=== PATIENT | female | born 1965 | race Caucasian/White ===

== ENCOUNTER 2018-02-17 02:07 | Emergency (ER) | payer SELFPAY ==
[2018-02-17 02:08] VITALS: BP 141/74; PULSE 76; RESP 18; TEMP 36.7; O2SAT 96; BMI 29.2
[2018-02-17 03:06] VITALS: PULSE 70; RESP 18
[2018-02-17] MEDS: Ipratropium/Albuterol Sulfate 3 ML AMPUL.NEB INHALATION (03:06)
--- NOTE | 2018-02-17 03:15 | RAD_ITS ---
STUDY: X-RAY CHEST REASON FOR EXAM: Female, 52 years old. Cough and shortness of breath TECHNIQUE: PA and lateral views of the chest. COMPARISON: 09/23/2014 FINDINGS: The lungs are clear and expanded. There is no demonstrated pleural abnormality. Normal size heart. Normal mediastinum and mehnaz. Normal visualized pulmonary arteries. Normal visualized aortic arch and descending thoracic aorta. Normal visualized thoracic spine. Normal visualized ribs, clavicles, and shoulders. There is no demonstrated abnormality of the visualized soft tissue structures of the upper abdomen. RAD/Chest PA and Lateral IMPRESSION: Normal x-ray examination of the chest. Electronically Signed: Flo Li MD at 3:32 EDT Tel , Service support ,
--- NOTE | 2018-02-17 03:57 | ED.VISSUMM ---
- ER Visit Summary Date of Service: 02/17/18 Chief Complaint: Cough and congestion History of Present Illness: The patient is a 52 F who presents with 1 week of a URI-like illness. She complains of congestion rhinorrhea and productive cough. She reports large amount of sputum. Her daughter is ill with similar symptoms. The patient denies fever shortness of breath nausea vomiting. Physical Examination: Afebrile vitals are normal Moist mucous membranes Heart regular rate and rhythm No respiratory distress faint scattered expiratory wheezing Abdomen soft Extremities nontender Test Results: Chest x-ray is normal Emergency Department Course and Treatment: Patient was given a DuoNeb aerosol. The patient's chest x-ray is normal. However her daughter was also seen and chest x-ray showed possible atypical pneumonia. Given that the patient will also have been exposed to this and has persistent symptoms for 1 week I do believe she should be covered for atypical pneumonia. We will treat with azithromycin. She understands to return for new or worsening symptoms. Patient discharged. Treatment Plan: [] Disposition: Discharge Impression: Bronchitis This note was generated with [employer] dictation software. It may contain incorrect words, spelling, and punctuation that were not noted in review of the chart prior to signing ED Disposition - Plan for ED Patient: Chief Complaint: Shortness of Breath Referrals: Rhina Adler MD [Primary Care Provider] -
--- NOTE | 2018-02-17 03:59 | ED.DEP ---
ED Disposition - Plan for ED Patient: Chief Complaint: Shortness of Breath Instructions: Acute Bronchitis Prescriptions: Azithromycin [Zithromax Z-David] 250 mg PO UD #1 box Referrals: Rhina Adler MD [Primary Care Provider] -
[2018-02-17 04:07] VITALS: PULSE 67; RESP 18; O2SAT 97
== END 2018-02-17 04:09 | disposition home or self-care (01) ==
PROVIDERS: Emergency Provider Emergency Medicine; Family Provider Internal Medicine; PCP Internal Medicine
DX: J40 Bronchitis, not specified as acute or chronic (principal); F41.9 Anxiety disorder, unspecified; Z72.0 Tobacco use; Z79.899 Other long term (current) drug therapy
CPT/HCPCS: 71046; 94640; 99282

== ENCOUNTER → 2019-01-25 | Outpatient (CLI) | payer SELFPAY ==
[2019-01-25 16:17] LABS: Hemoglobin A1c 5.8 % (4.2-6.3)
[2019-01-25 16:28] LABS: AST(SGOT) 22 U/L (15-37); Alanine Aminotransfer ALT/SGPT 25 U/L (13-56); Albumin, Serum 3.8 g/dL (3.2-5.0); Alkaline Phosphatase 95 U/L (45-117); Anion Gap 8 (5-15); BUN 11 mg/dL (7-18); BUN/Creat Ratio 13.8 RATIO (10-20); Calcium,Total 9.2 mg/dL (8.5-10.1); Chloride 108 mmol/L (98-107); Cholesterol 223 mg/dL (200); EST Glomerular Filtration Rate 80 mL/min (>60); Est Glom Filt Rate - Afr Amer 96 mL/min (>60); Globulin 3.9 g/dL (2.2-4.2); Glucose 83 mg/dL (74-106); High Density Lipoprotein 46 mg/dL; Potassium 4.4 mmol/L (3.5-5.1); Protein, Total 7.7 g/dL (6.4-8.2); Sodium Level 141 mmol/L (136-145); Thyroid Stim Hormone (TSH) 2.26 uIU/mL (0.358-3.74); Triglycerides 124 mg/dL; Very Low Density Lipoprotein 25 mg/dL (5-40)
== END | disposition home or self-care (01) ==
LOC: MTLAB 14:50
PROVIDERS: Family Provider Internal Medicine; PCP Internal Medicine
DX: Z79.899 Other long term (current) drug therapy (principal)
CPT/HCPCS: 36415; 80053; 80061; 82248; 83036; 84443

== ENCOUNTER → 2019-05-08 09:55 | Outpatient (CLI) | payer MEDICAID, SELFPAY ==
[2019-05-08 09:35] VITALS: BMI 29.2
[2019-05-08 12:11] LABS: Erythrocyte Sedimentation Rate 7 mm/hr (0-30)
[2019-05-08 12:18] LABS: Hemoglobin 13.7 g/dL (12.0-15.0); Mean Corp Hgb Conc 32.6 g/dL (32-36); Mean Corpuscular Hgb 31.1 pg (27.0-32.0); Mean Corpuscular Volume 95.2 fL (81-99); Mean Platelet Vol. 9.6 fl (6.2-12.0); Platelet Count 289 K/mm3 (150-450); RBC Distribution Width CV 13.3 % (11.6-14.6); RBC Distribution Width SD 46.6 fl (35.1-43.9); Red Blood Count 4.41 M/mm3 (4.2-5.4); White Blood Count 7.3 K/mm3 (4.4-11.0)
[2019-05-08 12:47] LABS: Rheumatoid Factor < 10.0 IU/mL (<15); Thyroid Stim Hormone (TSH) 4.96 uIU/mL (0.358-3.74)
[2019-05-09 16:57] LABS: ANTINUCLEAR ANTIBODIES DIRECT Negative (Negative)
== END ==
PROVIDERS: Family Provider Internal Medicine; PCP Internal Medicine; Visit Provider Nurse Practitioner Family
DX: M25.50 Pain in unspecified joint (principal); R21 Rash and other nonspecific skin eruption
CPT/HCPCS: 36415; 84443; 85027; 85652; 86038; 86225; 86235; 86431

== ENCOUNTER → 2019-05-21 13:43 | Outpatient (CLI) | payer MEDICAID, SELFPAY ==
[2019-05-08 09:35] VITALS: BMI 29.2
== END ==
PROVIDERS: Family Provider Internal Medicine; PCP Internal Medicine; Referring Provider Nurse Practitioner Family; Visit Provider Nurse Practitioner Family
DX: R79.89 Other specified abnormal findings of blood chemistry (principal)
CPT/HCPCS: 36415; 84439

== ENCOUNTER → 2019-10-22 14:43 | Outpatient (CLI) | payer MEDICAID, SELFPAY ==
[2019-10-22 13:58] VITALS: BMI 29.2
[2019-10-22 14:46] LABS: Bacteria 0 SEEN /hpf (None Seen); Mucous, Urine 0 SEEN /hpf (<or=2+)
[2019-10-22 16:20] LABS: Color, Urine Yellow (Yellow); Glucose, Dipstick Normal (Normal); Ketone-Dipstick Negative (Negative); Leukocyte Esterase-Dipstick 500 /ul (Negative); Nitrite-Dipstick Negative (Negative); Occult Blood-Urine 50 /ul (Negative); Protein-Dipstick Negative (Negative); Urine Bilirubin Dipstick Negative (Negative); Urine Clarity Sl. Cloudy (Clear); Urine Urobilinogen Normal (Normal)
[2019-10-22 16:28] LABS: Red Blood Cells-Urine 5-10 SEEN /hpf (0-5); Squamous Epithelial Cells - UA 0-5 SEEN /hpf (5-10); White Blood Cells 25-50 SEEN /hpf (0-5)
[2019-10-22 16:29] LABS: Amorphous Sediment 1+ URATE
[2019-10-22 16:38] LABS: Thyroid Stim Hormone (TSH) 2.71 uIU/mL (0.358-3.74)
== END ==
PROVIDERS: PCP Internal Medicine; Visit Provider Internal Medicine
DX: R35.0 Frequency of micturition (principal); R79.89 Other specified abnormal findings of blood chemistry; R30.0 Dysuria
CPT/HCPCS: 36415; 81001; 84443; 87086

== ENCOUNTER → 2019-11-06 15:27 | Outpatient (CLI) | payer MEDICAID, SELFPAY ==
[2019-10-22 13:58] VITALS: BMI 29.2
--- NOTE | 2019-11-06 15:28 | BI_ITS ---
MAMMOGRAPHY - BILATERAL SCREENING REASON FOR EXAM: Female, 54 years old. Routine annual screening examination. PERTINENT HISTORY: Non-contributory. TECHNIQUE: Digital bilateral breast osiris (3D mammographic acquisition) in the CC and MLO projections. 2-D mediolateral oblique (MLO) and craniocaudad (CC) views of both breasts were obtained. CAD: Full Field Digital Mammography with Computer Added Detection was performed. COMPARISON: Comparison is made with prior examination of January 05, 2017 and April 17, 2014. FINDINGS: Breast Composition: The breasts are heterogeneously dense, which may obscure small masses. There are no dominant masses or suspicious calcifications. Stable asymmetry of breast tissue were more breast tissue is seen in the right breast as compared to the left side. Stable benign-appearing bilateral axillary lymph nodes. No other significant abnormalities are identified. There has been no significant change since the prior study. BI/SCREEN MAMM (CAD) W/OSIRIS BILAT IMPRESSION: Stable bilateral screening mammogram. Yearly follow-up mammogram recommended. (A) ASSESSMENT CATEGORY: BIRADS Category 2: Benign. A letter regarding these results will be sent to the patient by the facility within 30 days. Approximately 10% of breast cancers are not detected by mammography. A normal mammogram should not delay biopsy of a clinically suspicious abnormality. [id number] Electronically Signed: Rios Marmolejo, at 8:25 EDT , Service support ,
== END ==
PROVIDERS: PCP Internal Medicine; Referring Provider Internal Medicine; Visit Provider Internal Medicine
DX: Z12.31 Encounter for screening mammogram for malignant neoplasm of breast (principal)
CPT/HCPCS: 77063; 77067

== ENCOUNTER → 2020-04-28 14:40 | Outpatient (CLI) | payer MEDICAID, SELFPAY ==
[2020-04-21 10:30] VITALS: BMI 29.2
[2020-04-28 18:20] LABS: Absolute Lymphocyte Count 2.76 X10^3/uL (0.83-4.51); Absolute Neutrophil Count 3.4 X10^3/uL (2.0-7.7); Basophil# 0.06 X10^3/uL; Basophil% 0.9 % (0-1); Eosinophil# 0.37 X10^3/uL; Eosinophils% 5.3 % (0-5); Hematocrit 44.5 % (37-47); Lymphocyte # 2.76 X10^3/ul (4.0); Lymphocyte % 39.3 % (19-41); Mean Corp Hgb Conc 31.5 g/dL (32-36); Mean Corpuscular Hgb 30.2 pg (27.0-32.0); Mean Corpuscular Volume 95.9 fL (81-99); Mean Platelet Vol. 9.7 fl (6.2-12.0); Monocyte# 0.39 X10^3/uL; Monocyte% 5.5 % (0-10); NRBC Flagged by Analyzer 0 % (0-5); Neutrophil # 3.43 X10^3/uL (2.7-7.7); Neutrophil % 48.7 % (47-70); Platelet Count 318 K/mm3 (150-450); RBC Distribution Width CV 13.4 % (11.6-14.6); RBC Distribution Width SD 47.6 fl (35.1-43.9); Red Blood Count 4.64 M/mm3 (4.2-5.4)
[2020-04-28 18:30] LABS: AST(SGOT) 18 U/L (15-37); Alanine Aminotransfer ALT/SGPT 22 U/L (13-56); Albumin, Serum 3.9 g/dL (3.2-5.0); Alkaline Phosphatase 98 U/L (45-117); Anion Gap 5 (5-15); BUN 13 mg/dL (7-18); BUN/Creat Ratio 14.3 RATIO (10-20); Calcium,Total 9.1 mg/dL (8.5-10.1); Chloride 111 mmol/L (98-107); Cholesterol 203 mg/dL (200); Creatinine, Serum 0.91 mg/dL (0.55-1.02); EST Glomerular Filtration Rate 68 mL/min (>60); Est Glom Filt Rate - Afr Amer 82 mL/min (>60); Globulin 3.9 g/dL (2.2-4.2); Glucose 108 mg/dL (74-106); High Density Lipoprotein 52 mg/dL; Potassium 4.1 mmol/L (3.5-5.1); Protein, Total 7.8 g/dL (6.4-8.2); Sodium Level 138 mmol/L (136-145); Triglycerides 128 mg/dL; Very Low Density Lipoprotein 26 mg/dL (5-40)
== END ==
PROVIDERS: PCP Internal Medicine; Visit Provider Internal Medicine
DX: E78.5 Hyperlipidemia, unspecified (principal)
CPT/HCPCS: 36415; 80053; 80061; 85025

== ENCOUNTER → 2020-11-11 16:10 | Outpatient (CLI) | payer MEDICAID, SELFPAY ==
[2020-11-11 15:45] VITALS: BMI 29.2
[2020-11-11 16:47] LABS: Absolute Lymphocyte Count 2.69 X10^3/uL (0.83-4.51); Absolute Neutrophil Count 3.3 X10^3/uL (2.0-7.7); Basophil# 0.04 X10^3/uL; Basophil% 0.6 % (0-1); Eosinophil# 0.34 X10^3/uL; Hemoglobin 13.5 g/dL (12.0-15.0); Lymphocyte # 2.69 X10^3/ul (0.83-4.51); Lymphocyte % 39.9 % (19-41); Mean Corp Hgb Conc 32.9 g/dL (32-36); Mean Corpuscular Hgb 30.8 pg (27.0-32.0); Mean Corpuscular Volume 93.6 fL (81-99); Monocyte# 0.35 X10^3/uL; Monocyte% 5.2 % (0-10); NRBC Flagged by Analyzer 0 % (0-5); Neutrophil % 48.9 % (47-70); Platelet Count 331 K/mm3 (150-450); RBC Distribution Width CV 13.4 % (11.6-14.6); RBC Distribution Width SD 46.2 fl (35.1-43.9); Red Blood Count 4.38 M/mm3 (4.2-5.4); White Blood Count 6.8 K/mm3 (4.4-11.0)
[2020-11-11 17:05] LABS: Hemoglobin A1c 5.8 % (3.8-5.6)
[2020-11-11 17:48] LABS: T4 Free Direct 0.75 ng/dL (0.76-1.46); Thyroid Stim Hormone (TSH) 4.27 uIU/mL (0.358-3.74)
== END ==
PROVIDERS: PCP Internal Medicine; Referring Provider Nurse Practitioner Family; Visit Provider Nurse Practitioner Family
DX: R79.89 Other specified abnormal findings of blood chemistry (principal); E78.5 Hyperlipidemia, unspecified; R73.03 Prediabetes
CPT/HCPCS: 36415; 83036; 84439; 84443; 85025

== ENCOUNTER → 2020-12-23 12:59 | Outpatient (CLI) | payer MEDICAID, SELFPAY ==
[2020-11-11 15:45] VITALS: BMI 29.2
--- NOTE | 2020-12-23 13:02 | BI_ITS ---
MAMMOGRAPHY - BILATERAL SCREENING REASON FOR EXAM: Female, 55 years old. Routine annual screening examination. PERTINENT HISTORY: Screening TECHNIQUE: Digital bilateral breast osiris (3D mammographic acquisition) in the CC and MLO projections. 2-D mediolateral oblique (MLO) and craniocaudad (CC) views of both breasts were obtained. CAD: Full Field Digital Mammography with Computer Added Detection was performed. COMPARISON: 11/06/2019 FINDINGS: Breast Composition: Heterogeneously dense There are no dominant masses or suspicious calcifications. No other significant abnormalities are identified. BI/SCRN MAMM (CAD)W/OSIRIS BILAT IMPRESSION: Stable bilateral screening mammogram. Yearly follow-up mammogram recommended. (A) ASSESSMENT CATEGORY: BIRADS Category 1: Negative. A letter regarding these results will be sent to the patient by the facility within 30 days. Approximately 10% of breast cancers are not detected by mammography. A normal mammogram should not delay biopsy of a clinically suspicious abnormality. [id number] Electronically Signed: Callum Ortiz DO at 14:51 EDT Tel , Service support ,
--- NOTE | 2020-12-23 13:02 | BD_ITS ---
STUDY: DUAL ENERGY X-RAY ABSORPTIOMETRY / DXA REASON FOR EXAM: Female, 55 years old. [id number]. Patient is postmenopausal. TECHNIQUE: Bone Mineral Density (BMD) measurements of lumbar spine and bilateral hips were obtained. COMPARISON: None. FINDINGS: Lumbar Spine (L1-L4): g/cm2 (1.150) / T-score (0.9) / Z-score (2.2) Findings are suggestive of normal bone density with a low fracture risk. Left Femur Total: g/cm2 (1.051) / T-score (0.9) / Z-score (1.7) Left Femoral Neck: g/cm2 (0.874) / T-score (0.2) / Z-score (1.4) Right Femur Total: g/cm2 (1.039) / T-score (0.8) / Z-score (1.6) Right Femoral Neck: g/cm2 (0.881) / T-score (0.3) / Z-score (1.5) BD/Dexa Bone Density Study IMPRESSION: The patient is considered normal as outlined below according to World [employer] Organization (WHO) criteria with a low fracture risk. Reference Information: The T-score is the number of standard deviations above or below the standard which is normal for young adults at their peak bone mineral density. The World Health Organization (WHO) interprets the T-scores as follows: Above -1 Normal bone density Between -1 and -2.5 Osteopenia Equal to / or below -2.5 Osteoporosis As a practical clinical guideline, osteopenia may be graded as follows: Mild -1 through -1.5 Moderate -1.6 through -2.0 Severe -2.1 through -2.4 The Z-score is the number of standard deviations above or below age-matched controls. A Z-score of less than -1.5 would be considered abnormal. References: 1. NIH Osteoporosis and Related Bone Diseases www osteo.org 2. International Society for Clinical Densitometry www iscd.org 3. National Osteoporosis Foundation www nof.org Electronically Signed: Rios Marmolejo MD at 10:07 EDT , Service support ,
== END ==
PROVIDERS: PCP Internal Medicine; Referring Provider Nurse Practitioner Family; Visit Provider Nurse Practitioner Family
DX: Z12.31 Encounter for screening mammogram for malignant neoplasm of breast (principal)
CPT/HCPCS: 77063; 77067; 77080

== ENCOUNTER 2021-03-27 11:54 | Inpatient (IN) | payer MEDICAID, SELFPAY ==
[2021-03-27] VITALS (14 sets, daily range): BP systolic 109–137; BP diastolic 50–74; PULSE 86–110; RESP 14–42; TEMP 35.8–36.9; O2SAT 88–94; BMI 32.1; BMI 34.9
--- NOTE | 2021-03-27 12:35 | CT_ITS ---
STUDY: CTA CHEST REASON FOR EXAM: Female, 56 years old. Sob, + covid RADIATION DOSAGE (If Supplied By Facility): CTDIvol = ( 13.15 ) mGy, DLP = ( 362.46 ) mGycm TECHNIQUE: The examination was performed with the intravenous administration of IV 100mL Isovue-370. Post-processing of the angiographic images was performed, with multiplanar reformation and 3D reconstruction. Individualized dose optimization techniques were used for this CT. COMPARISON: None. FINDINGS: Normal enhancement of the main pulmonary artery and right and left pulmonary arteries. Normal enhancement of the bilateral peripheral pulmonary arteries. There is no demonstrated pulmonary embolism. Normal thoracic aorta and visualized great vessels. There is no demonstrated aortic dissection. Normal heart and pericardium. Normal mediastinum. Normal hilar regions. Normal visualized trachea and bronchi. The lungs are well expanded. There is evidence of a pulmonary infiltrates in both upper lobes worse in the right upper lobe. Patchy bibasilar infiltrates worse at the right lung base. No pulmonary nodule is seen in the left lung. The radiographic abnormality most likely represents a focal area of infiltrate. Normal pleura. Normal chest wall structures. There are degenerative changes of thoracic spine. Normal visualized upper abdomen. CT/CTA Chest W/WO Contrast IMPRESSION: No evidence of pulmonary embolism. Bilateral pulmonary infiltrates worse in the right upper and right lower lobes. Electronically Signed: Rios Marmolejo MD at 14:31 EDT , Service support ,
--- NOTE | 2021-03-27 12:35 | EKG12_ITS ---
Test Reason : WORK UP Blood Pressure : / mmHG Vent. Rate : 099 BPM Atrial Rate : 099 BPM P-R Int : 144 ms QRS Dur : 074 ms QT Int : 356 ms P-R-T Axes : 059 089 075 degrees QTc Int : 456 ms Normal sinus rhythm Normal ECG Confirmed by SHASHANK SAGASTUME, MILLY ([id number]), editor house organ BIRD SEXTON ([id number]) on 03/30/2021 10:59:16 AM Referred By: KEELEY Confirmed By:MILLY ENCARNACION MD
--- NOTE | 2021-03-27 12:37 | EX.ED.DYSGE1 ---
HPI History of Present Illness Chief Complaint: General Illness Detail of Chief Complaint: Increase shortness of breath and diarrhea Informant: patient Narrative Narrative: Patient reports being diagnosed with Covid 3 weeks ago. She did not receive steroids or monoclonal antibody therapy. She was not vaccinated. Patient states she thought she was improving but has now noted increased shortness of breath and diarrhea. She is no longer running fever. She does report frequent cough with yellow sputum production. She will occasionally feel like she is wheezing. PFSH PFS Medical History Borderline diabetes mellitus Cholelithiasis Elevated TSH High triglycerides History of positive hepatitis C Hypothyroidism (acquired) Panic disorder Postmenopausal disorder Preventative health care Psychiatric care Seasonal allergies Weight gain Home Medications escitalopram oxalate 20 mg PO DAILY 09/22/14 [History Last Taken 09/21/14 21:00] lorazepam 0.5 mg tablet 0.5 mg PO BID tab 10/22/19 [History Last Taken Unknown] gabapentin 100 mg capsule 100 mg PO QHS #30 cap 11/10/20 [Rx Last Taken Unknown] levothyroxine 25 mcg tablet 25 mcg PO DAILY #90 tab 11/12/20 [Rx Last Taken Unknown] Allergy/AdvReac Type Severity Reaction Status Date / Time Penicillins Allergy Hives Verified 03/27/21 11:57 Sulfa (Sulfonamide Allergy Hives Verified 03/27/21 11:57 Antibiotics) Family History Father Hypertension Depression Hyperlipidemia Anxiety CVA (cerebral vascular accident) Daughter Schizophrenia Mother Anemia Grandmother Dementia Surgical History History of 3 sections History of cholecystectomy History of tonsillectomy Social History Smoking Status: Current every day smoker tobacco type: cigarettes Tobacco: How many years used: 10 alcohol intake: never substance use type: does not use what type of physical activity do you participate in: walking frequency: 3-4 times per week ROS ROS ED Constitutional Constitutional ED: Denies chills or fever(s) Eyes Eyes: Denies change in vision ENT ENT ED: Denies sore throat Cardiovascular Cardiovascular: Denies chest pain Respiratory/Chest Respiratory/Chest: Reports cough, dyspnea and sputum Gastrointestinal Gastrointestinal: Reports abdominal pain, diarrhea, nausea and vomiting Genitourinary Genitourinary ED: Denies dysuria Musculoskeletal Musculoskeletal: Denies back pain Integumentary Denies rash Neurologic Neurologic: Reports weakness; Denies headache(s) Allergic/Immunologic Allergic/Immunologic ED: Denies urticaria EXAM Physical Exam Const Vital Signs: 03/27/21 11:55 03/27/21 11:57 03/27/21 12:40 Temperature 96.4 F L 96.4 F L Temperature Source Temporal Temporal Pulse Rate 110 H 110 H Respiratory Rate 21 H 21 H Respiratory Pattern Tachypnea Blood Pressure 137/70 H 137/70 H Blood Pressure Mean 92 92 Pulse Ox 91 93 93 Oxygen Delivery Method Room Air Nasal Cannula Nasal Cannula Oxygen Flow Rate (L/min) 3 3 03/27/21 12:57 03/27/21 13:47 03/27/21 14:30 Temperature 97 F L 97 F L Temperature Source Temporal Temporal Pulse Rate 100 101 H 98 Respiratory Rate 32 H 42 H 38 H Respiratory Pattern Blood Pressure 120/72 117/71 120/74 Blood Pressure Mean 88 86 89 Pulse Ox 94 93 94 Oxygen Delivery Method Nasal Cannula Nasal Cannula Nasal Cannula Oxygen Flow Rate (L/min) 3 3 3 03/27/21 14:31 Temperature 97 F L Temperature Source Temporal Pulse Rate 98 Respiratory Rate 38 H Respiratory Pattern Blood Pressure 120/74 Blood Pressure Mean 89 Pulse Ox 94 Oxygen Delivery Method Nasal Cannula Oxygen Flow Rate (L/min) 3 Positive well nourished and well developed General Appearance ED: well developed HEENT Reports moist mucous membranes Eyes PERRL and EOMs intact bilaterally Neck supple Chest Wall inspection of chest normal Resp normal respiratory effort Auscultation: wheezes Cardio Rate: tachycardic GI non-tender Auscultation: hypoactive bowel sounds Palpation: soft Neuro oriented x3 Sensorium / Orientation: alert Psych mental status grossly normal Skin no rashes or lesions noted MDM MDM MDM Narrative Medical decision making narrative: Lab work, EKG, chest x-ray obtained. With patient's mild hypoxia and increased shortness of breath CTA of the chest was obtained. Patient was given albuterol inhaler along with Robitussin-AC to help control cough. She was given Zofran for nausea control. Lab Data Attestation: I reviewed the patient's lab results. Labs: Laboratory Results - last 24 hr 03/27/21 03/27/21 03/27/21 12:55 12:55 12:55 WBC 5.3 RBC 4.57 Hgb 13.6 Hct 39.7 MCV 86.9 MCH 29.8 MCHC 34.3 RDW Std Deviation 42.9 RDW Coeff of Palomo 13.6 Plt Count 317 MPV 8.8 Immature Gran % (Auto) 0.900 Neut % (Auto) 82.0 H Lymph % (Auto) 12.6 L Union % (Auto) 4.3 Eos % (Auto) 0.0 Baso % (Auto) 0.2 Absolute Neuts (auto) 4.3 Absolute Lymphs (auto) 0.67 L Nucleated RBC % 0 Sodium 127 L Potassium 3.4 L Chloride 96 L Carbon Dioxide 22.0 Anion Gap 9 BUN 9 Creatinine 0.69 Estim Creat Clear Calc 67.06 Est GFR (MDRD) Af Amer 113 Est GFR (MDRD) Non-Af 93 BUN/Creatinine Ratio 13.1 Glucose 108 H Lactic Acid 1.0 Calcium 8.5 Total Bilirubin 0.70 AST 124 H ALT 65 H Alkaline Phosphatase 57 Total Protein 7.1 Albumin 2.8 L Globulin 4.3 H Albumin/Globulin Ratio 0.7 L Radiography Chest X-Ray - ED: 1 View, Read by ED Physician, Right Infiltrate and Left Infiltrate Diagnostic Testing: Clinical Impression(s) from Imaging Studies Chest CTA 03/27/21 12:35 IMPRESSION: No evidence of pulmonary embolism. Bilateral pulmonary infiltrates worse in the right upper and right lower lobes. Electronically Signed: Rios Marmolejo MD at 14:31 EDT , Service support , Chest X-Ray 03/27/21 13:26 IMPRESSION: Right upper lobe and right perihilar infiltrates. Radiographic follow-up is recommended. Questionable 7.1 mm nodule in the left midlung. Electronically Signed: Rios Marmolejo MD at 14:01 EDT , Service support , EKG Initial EKG: Attestation: I personally reviewed and interpreted this EKG as follows: Interpretation: Sinus Rhythm (Sinus at 99 with no acute ischemia.) Treatment and Re-Evaluation Comments:: Patient is currently on 3 L nasal cannula with O2 sat around 93%. Lab work significant for hyponatremia with a sodium of 127. Renal function normal. Lactic acid normal. CTA of the chest reveals bilateral infiltrates but no evidence of PE. Test results discussed with the patient. She will be admitted for further treatment. Because the patient was diagnosed initially 3 weeks ago, got better, and then worse again I do question whether she may have a secondary bacterial infection on top of Covid. In light of this I will give her Rocephin and Zithromax. I will also treat her with IV Decadron. Discharge Plan Triage Chief Complaint: General Illness ED Provider: Zenaida Hunter Dx/Rx/DC Orders Clinical Impression: COVID-19, Pneumonia, Hyponatremia Prescriptions: No Action escitalopram oxalate 10 MG tablet 20 mg PO DAILY RF: 0 lorazepam 0.5 mg tablet 0.5 mg PO BID RF: 0 gabapentin 100 mg capsule 100 mg PO QHS Qty: 30 RF: 1 levothyroxine 25 mcg tablet 25 mcg PO DAILY Qty: 90 RF: 1 Primary Care Provider: Rhina Adler Referrals: Rhina Adler MD [Primary Care Provider] - Disposition Disposition: Acute Care [facility]
[2021-03-27] MEDS: Ondansetron 4 MG/2 ML Vial IV (13:01)
[2021-03-27 13:17] LABS: Absolute Lymphocyte Count 0.67 X10^3/uL (0.83-4.51); Absolute Neutrophil Count 4.3 X10^3/uL (2.0-7.7); Basophil# 0.01 X10^3/uL; Basophil% 0.2 % (0-1); Hematocrit 39.7 % (37-47); Hemoglobin 13.6 g/dL (12.0-15.0); Lymphocyte # 0.67 X10^3/ul (0.83-4.51); Lymphocyte % 12.6 % (19-41); Mean Corp Hgb Conc 34.3 g/dL (32-36); Mean Corpuscular Hgb 29.8 pg (27.0-32.0); Mean Corpuscular Volume 86.9 fL (81-99); Mean Platelet Vol. 8.8 fl (6.2-12.0); Monocyte# 0.23 X10^3/uL; Monocyte% 4.3 % (0-10); NRBC Flagged by Analyzer 0 % (0-5); Neutrophil # 4.34 X10^3/uL (2.7-7.7); Platelet Count 317 K/mm3 (150-450); RBC Distribution Width CV 13.6 % (11.6-14.6); RBC Distribution Width SD 42.9 fl (35.1-43.9); Red Blood Count 4.57 M/mm3 (4.2-5.4); White Blood Count 5.3 K/mm3 (4.4-11.0)
--- NOTE | 2021-03-27 13:26 | RAD_ITS ---
STUDY: X-RAY CHEST REASON FOR EXAM: Female, 56 years old. Cough TECHNIQUE: Single AP portable view of the chest. COMPARISON: Comparison is made with prior studies of 02/17/2018. FINDINGS: EKG electrodes are seen. There is evidence of a right upper lobe infiltrate which abuts the right minor fissure. I also suspect a right infrahilar infiltrate. 7.1 mm nodule in the left midlung. There is no demonstrated pleural abnormality. Normal size heart. Normal mediastinum and mehnaz. Normal visualized pulmonary arteries. Normal visualized aortic arch and descending thoracic aorta. Normal visualized thoracic spine. Normal visualized ribs, clavicles, and shoulders. There is no demonstrated abnormality of the visualized soft tissue structures of the upper abdomen. RAD/Chest 1 View (Portable) IMPRESSION: Right upper lobe and right perihilar infiltrates. Radiographic follow-up is recommended. Questionable 7.1 mm nodule in the left midlung. Electronically Signed: Rios Marmolejo MD at 14:01 EDT , Service support ,
[2021-03-27 13:32] LABS: ALB/GLOB Ratio 0.7 RATIO (0.9-2.4); AST(SGOT) 124 U/L (15-37); Alanine Aminotransfer ALT/SGPT 65 U/L (13-56); Albumin, Serum 2.8 g/dL (3.2-5.0); Alkaline Phosphatase 57 U/L (45-117); Anion Gap 9 (5-15); BUN 9 mg/dL (7-18); BUN/Creat Ratio 13.1 RATIO (10-20); Calcium,Total 8.5 mg/dL (8.5-10.1); Chloride 96 mmol/L (98-107); Creatinine, Serum 0.69 mg/dL (0.55-1.02); EST Glomerular Filtration Rate 93 mL/min (>60); Est Glom Filt Rate - Afr Amer 113 mL/min (>60); Estimated Creatinine Clearance 67.06 ml/min; Globulin 4.3 g/dL (2.2-4.2); Glucose 108 mg/dL (74-106); Potassium 3.4 mmol/L (3.5-5.1); Protein, Total 7.1 g/dL (6.4-8.2); Sodium Level 127 mmol/L (136-145)
[2021-03-27] MEDS: guaiFENesin/Codeine 5 ML UDC 10 ML PO (13:43)
--- NOTE | 2021-03-27 14:45 | HP.PCM.HOS_ITS ---
HPI - General General Date of Admission: 03/27/21 Date of Service: 03/27/21 Chief Complaint: COVID sxs worsening, diarrhea ongoing. HPI Narrative The patient is a 56 y/o F w/ PMHx: Tobacco use, Hypothyroidism, Obesity, Anxiety and Depression/Panic disorder, Borderline Diabetes mellitus type II, Allergic Rhinitis, Hepatitis C who presents to the [facility] ED on 03/27/21 with history of COVID diagnosis ~ 3 weeks prior to current presentation with symptoms since the beginning inclusive of fevers, chills, headache, sore throat, decreased/altered sense of taste and smell, fatigue, malaise, cough, abdominal cramping, nausea, emesis, diarrhea, body aches, reporting that some of these have improved with lessening diarrhea as she had been having at least 6-8 episodes per day but she feels worse and has ongoing cough, fatigue and dyspnea prompting eventual ED evaluation. She notes that she is no longer had any fevers. She occasionally feels as though she has been wheezing. She is unvaccinated and denies having previously received any steroids or monoclonal therapy. Her daughter had onset of symptoms at the same time as her approximately 3 weeks prior and remains in the intensive care unit work-up in the ED included T 96.4, heart rate 111, BP 137/70, respiratory rate 21, initially 88 to 91% on room air, improved to 93% on 3 L nasal cannula, CBC with WC 5.3, hemoglobin 13.6, platelet 317 with lymphopenia, CMP with sodium 127, potassium 3.4, chloride 96, glucose 108, lactic acid 1.0, total bilirubin 0.70, AST/ALT 124/65 otherwise not marked appearing, blood culture x2 pending per ED, chest x-ray with right upper lobe and right perihilar infiltrates with questionable 7.1 mm nodule in the left midlung, CTPA with no evidence of pulmonary embolism with bilateral pulmonary infiltrates, worse in the right upper and right lower lobes with no evidence of pulmonary nodule seen in the left lung on CT scan. In the ED patient ministered Zofran, albuterol, guaifenesin/codeine as well as hydrocodone. In addition patient administered 6 mg IV Decadron, Rocephin and azithromycin in case of superimposed bacterial infection. [facility] Medical History Borderline diabetes mellitus Cholelithiasis Elevated TSH High triglycerides History of positive hepatitis C Hypothyroidism (acquired) Panic disorder Postmenopausal disorder Preventative health care Psychiatric care Seasonal allergies Weight gain Home Medications escitalopram oxalate 20 mg PO DAILY 09/22/14 [History Last Taken 09/21/14 21:00] lorazepam 0.5 mg tablet 0.5 mg PO BID tab 10/22/19 [History Last Taken Unknown] Allergy/AdvReac Type Severity Reaction Status Date / Time Penicillins Allergy Hives Verified 03/27/21 11:57 Sulfa (Sulfonamide Allergy Hives Verified 03/27/21 11:57 Antibiotics) Family History Father Hypertension Depression Hyperlipidemia Anxiety CVA (cerebral vascular accident) Daughter Schizophrenia Mother Anemia Grandmother Dementia Surgical History History of 3 sections History of cholecystectomy History of tonsillectomy Social History (Updated 03/27/21 @ 15:[address] Diane Mercado MD) household members: other details: She normally lives with her daughter, who is hospitalized with COVID (3 wk) Smoking Status: Current every day smoker tobacco type: cigarettes Smoking packs per day: 1 Smoking cigarettes per day: 20.0 Tobacco: How many years used: 10 how long ago did patient quit smoking: Patient quit 3 weeks prior with onset COVID sxs, 1 ppd since teen. alcohol intake: never substance use type: does not use what type of physical activity do you participate in: walking frequency: 3-4 times per week ROS ROS Narrative Admission Review of Systems: CONSTITUTIONAL: No weight loss, fever, chills, weakness or fatigue. HEENT: + Headache, sore throat, decreased/altered sense of taste and smell. Eyes: No visual loss, blurred vision, double vision or yellow sclerae. Ears, Nose, Throat: No hearing loss, sneezing. SKIN: No rash or itching, lesions, wounds. CARDIOVASCULAR: No chest pain, chest pressure or chest discomfort, palpitations, edema, orthopnea, syncopal events. RESPIRATORY: + shortness of breath, cough now with mild sputum, wheezing, No hemoptysis. GASTROINTESTINAL: + anorexia, nausea, vomiting, diarrhea, abdominal pain, No melena, BRBPR. GENITOURINARY: No dysuria, frequency, urgency or retention. NEUROLOGICAL: No headache, dizziness, syncope, paralysis, ataxia, numbness or tingling in the extremities, focal weakness, change in bowel or bladder control, seizure. MUSCULOSKELETAL: + muscle, back pain, joint pain or stiffness. HEMATOLOGIC: No anemia, bleeding or bruising. LYMPHATICS: No enlarged nodes. No history of splenectomy. PSYCHIATRIC: + history of depression or anxiety. ENDOCRINOLOGIC: No reports of sweating, cold or heat intolerance. No polyuria or polydipsia. ALLERGIES: + history of asthma, hives, eczema or rhinitis. Vital Signs Vital Signs Vital Signs: 03/27/21 11:55 03/27/21 11:57 03/27/21 12:40 Temperature 96.4 F L 96.4 F L Temperature Source Temporal Temporal Pulse Rate 110 H 110 H Respiratory Rate 21 H 21 H Respiratory Pattern Tachypnea Blood Pressure 137/70 H 137/70 H Blood Pressure Mean 92 92 Pulse Ox 91 93 93 Oxygen Delivery Method Room Air Nasal Cannula Nasal Cannula Oxygen Flow Rate (L/min) 3 3 03/27/21 12:57 03/27/21 13:47 03/27/21 14:30 Temperature 97 F L 97 F L Temperature Source Temporal Temporal Pulse Rate 100 101 H 98 Respiratory Rate 32 H 42 H 38 H Respiratory Pattern Blood Pressure 120/72 117/71 120/74 Blood Pressure Mean 88 86 89 Pulse Ox 94 93 94 Oxygen Delivery Method Nasal Cannula Nasal Cannula Nasal Cannula Oxygen Flow Rate (L/min) 3 3 3 03/27/21 14:31 Temperature 97 F L Temperature Source Temporal Pulse Rate 98 Respiratory Rate 38 H Respiratory Pattern Blood Pressure 120/74 Blood Pressure Mean 89 Pulse Ox 94 Oxygen Delivery Method Nasal Cannula Oxygen Flow Rate (L/min) 3 Weight Weight: 170 lb Body Mass Index (BMI) 32.1 Physical Exam Narrative Physical Examination: General: Awake, alert, oriented x 3 and cooperative, seated upright in the ED bed, fatigued and ill-appearing, flushed. Skin: Flushed color, normal turgor, no icterus, no cyanosis. HEENT: AT/NC, EOMI, PERRLA, dry MM, no carotid bruits or JVD noted. Lungs: Diffusely diminished, greater bases, mildly increased respiratory rate but no evidence of any distress, no rales, ronchi or wheezing. Heart: Mildly tachycardic with regular rhythm; no gallop, rub audible. Abdomen: Soft, obese, NTTP, ND, moderately hyperactive BS, no obvious evidence of HSM. Extremities: No cyanosis, clubbing, or edema. Neurological: Patient awake, alert, oriented as noted, cognitive function intact; pupils equally reactive to light and accommodation, cranial nerves II- XII grossly normal, moving all 4 extremities, no focal deficits, strength sever mansoor global decrease secondary to acute presentation complaints Psychiatric: Affect appears fatigued, ill-appearing, no acute evidence of depressive or anxiety feelings. Results Lab / Micro Data Result Diagrams: 03/27/21 12:55 03/27/21 12:55 Labs: Laboratory Results - last 24 hr 03/27/21 12:55: WBC 5.3, RBC 4.57, Hgb 13.6, Hct 39.7, MCV 86.9, MCH 29.8, MCHC 34.3, RDW Std Deviation 42.9, RDW Coeff of Palomo 13.6, Plt Count 317, MPV 8.8, Immature Gran % (Auto) 0.900, Neut % (Auto) 82.0 H, Lymph % (Auto) 12.6 L, [place] % (Auto) 4.3, Eos % (Auto) 0.0, Baso % (Auto) 0.2, Absolute Neuts (auto) 4.3, Absolute Lymphs (auto) 0.67 L, Nucleated RBC % 0 03/27/21 12:55: Sodium 127 L, Potassium 3.4 L, Chloride 96 L, Carbon Dioxide 22.0, Anion Gap 9, BUN 9, Creatinine 0.69, Estim Creat Clear Calc 67.06, Est GFR (MDRD) Af Amer 113, Est GFR (MDRD) Non-Af 93, BUN/Creatinine Ratio 13.1, Glucose 108 H, Calcium 8.5, Total Bilirubin 0.70, AST 124 H, ALT 65 H, Alkaline Phosphatase 57, Total Protein 7.1, Albumin 2.8 L, Globulin 4.3 H, Albumin/Globulin Ratio 0.7 L 03/27/21 12:55: Lactic Acid 1.0 Radiology Impression Chest CTA 03/27/21 12:35 IMPRESSION: No evidence of pulmonary embolism. Bilateral pulmonary infiltrates worse in the right upper and right lower lobes. Electronically Signed: Rios Marmolejo MD at 14:31 EDT , Service support , Chest X-Ray 03/27/21 13:26 IMPRESSION: Right upper lobe and right perihilar infiltrates. Radiographic follow-up is recommended. Questionable 7.1 mm nodule in the left midlung. Electronically Signed: Rios Marmolejo MD at 14:01 EDT , Service support , Assessment & Plan Assessment/Plan (1) Pneumonia due to COVID-19 virus: (2) Hypoxia: PLAN: The patient is a 56 y/o F w/ PMHx: Tobacco use, Hypothyroidism, Obesity, Anxiety and Depression/Panic disorder, Borderline Diabetes mellitus type II, Allergic Rhinitis, Hepatitis C who presents to the [facility] ED on 03/27/21 with history of COVID diagnosis (Unvaccinated status)~ 3 weeks prior to current presentation with fatigue, malaise, cough with yellow sputum production with abdominal cramping, nausea, emesis, diarrhea prompting eventual ED evaluation. 1. Acute Hypoxia secondary to Acute Bilateral Pneumonia secondary to Acute Viral Syndrome, COVID-19 with Intractable Diarrhea component: We will admit to medical surgical floor, given current hypoxia will require completion of 20 days of quarantine, will maintain on oxygen with wean as tolerated to room air, PRN albuterol, HOB, IS parameters w/ pending sputum cultures, respiratory viral panel and urine antigens, will obtain D-dimer, procalcitonin, CRP, CPK, Ferritin, LDH, trop and BNP, continue supportive care including q 2 hour turning including prone given no prone bed availability and judicious hydration, closely monitor for worsening status for ARDS and multiorgan failure, will initiate and continue IV decadron x 10 doses, given timeline not a candidate for remdesivir, as needed Lomotil. ED did administer Rocephin and azithromycin for possible superimposed infection, will await procalcitonin and if normal range will defer repeat as this is often the course with Covid patients. 2. Hypokalemia: Admission K+ 3.4, magnesium level requested, supplementation given, repeat level in AM. 3. Hyponatremia, likely component hypokalemia: Admission sodium 127, given recent history of notable GI losses with acute presentation #1, will continue judicious hydration given number 1, encourage Lomotil usage, repeat CMP in AM. 4. Reported Borderline Diabetes mellitus type II: Not on regimen, will obtain hemoglobin A1c especially given planned steroid usage, maintain on ADA diet, a ccu checks w/ ISS. 5. Anxiety and depression/panic disorder: We will continue patient home escital opram as well as low-dose Ativan regimen, hold for sedation given presentation. 6. Hypothyroidism: Continue home synthroid regimen. 7. Tobacco Abuse: Encouraged cessation, inpatient consultation per RT, NR if desired. 8. Reported history of hepatitis C: Encourage continued outpatient follow-up. 9. Hyperlipidemia: Not on regimen, defer to outpatient. 10. DVT prophylaxis: SCDs, Lovenox. 11. CODE status: Patient does not have healthcare power of trademark attorney nor living will in place. Discussed CODE status at length including difference between FULL code, DNR-CCA and DNR-CC status. Following discussions about the differences in these status, requested Full Code status. Amenable to airvo and BIPAP if needed. Advanced Care Planning Face to Face Time: 16 minutes. Charges/Coding Visit Charges Inpatient E&M: 59886 Init Hosp L3 Procedures Hospitalists Procedures: 18014 Advncd Care Plan 30 Min
[2021-03-27] MEDS: dexAMETHasone 4 MG/ML Vial 6 MG IV (15:09)
[2021-03-27] MEDS: Ceftriaxone 1 GM/50 ML BAG IV (15:09)
[2021-03-27 15:54] LABS: Ferritin 1590 ng/mL (8-252); LDH 928 U/L (84-246); Magnesium 1.9 mg/dL (1.6-2.6)
[2021-03-27 16:05] LABS: BNP,B-Type NATRIURETIC PEPTIDE 10.5 pg/mL (0-100)
[2021-03-27 16:06] LABS: Procalcitonin 0.14 ng/mL (0.00-0.09)
[2021-03-27 16:46] LABS: D-Dimer Quantitative (DVT/PE) 3.27 FEU/ug/m (0.27-0.49)
[2021-03-27] MEDS: 0.9% Normal Saline 1,000 ML 100 ML IV (17:06)
[2021-03-27] MEDS: Potassium Chloride Oral Tablet 20 MEQ 40 MEQ PO (17:13)
[2021-03-27 21:15] LABS: Bedside Glucose 117 mg/dL (70-110)
[2021-03-27] MEDS: LORazepam 0.5 MG Tablet PO (21:38)
[2021-03-27] MEDS: Famotidine 20 MG Tablet PO (21:40)
[2021-03-27] MEDS: Enoxaparin 30 MG/0.3 ML Syringe SC (21:40)
[2021-03-27] MEDS: Escitalopram Oxalate 20 MG Tablet PO (21:44)
[2021-03-27 22:50] LABS: Bedside Glucose 149 mg/dL (70-110)
[2021-03-28] VITALS (12 sets, daily range): BP systolic 93–112; BP diastolic 59–75; PULSE 64–87; RESP 20–22; TEMP 35.7–36.4; O2SAT 2–100
[2021-03-28] MEDS: 0.9% Saline Lock 10 ML Syringe IV (04:46)
[2021-03-28 07:11] LABS: Absolute Lymphocyte Count 0.89 X10^3/uL (0.83-4.51); Absolute Neutrophil Count 4.5 X10^3/uL (2.0-7.7); Basophil# 0.02 X10^3/uL; Basophil% 0.3 % (0-1); Hemoglobin 13.1 g/dL (12.0-15.0); Lymphocyte # 0.89 X10^3/ul (0.83-4.51); Lymphocyte % 15.5 % (19-41); Mean Corp Hgb Conc 33.6 g/dL (32-36); Mean Corpuscular Hgb 30.3 pg (27.0-32.0); Mean Corpuscular Volume 90.1 fL (81-99); Mean Platelet Vol. 8.9 fl (6.2-12.0); Monocyte% 3.5 % (0-10); NRBC Flagged by Analyzer 0 % (0-5); Neutrophil # 4.51 X10^3/uL (2.7-7.7); Neutrophil % 78.4 % (47-70); POSITIVE MORPHOLOGY YES; Platelet Count 352 K/mm3 (150-450); RBC Distribution Width CV 13.8 % (11.6-14.6); RBC Distribution Width SD 46.2 fl (35.1-43.9); Red Blood Count 4.33 M/mm3 (4.2-5.4); White Blood Count 5.8 K/mm3 (4.4-11.0)
[2021-03-28 07:18] LABS: Differential Indicated SCAN CRITERIA MET
--- NOTE | 2021-03-28 07:23 | PN.HOSP_ITS ---
Subjective Subjective Patient is a 56-year-old lady unvaccinated against COVID-19 presented with progressive generalized weakness malaise cough and sputum production. CTA obtained on admission demonstrated bilateral pulmonary infiltrate worse in the right upper and right lower lobes. An assessment of acute hypoxic respiratory failure secondary to COVID-19 pneumonia admitted to regular nursing floor for further management Objective Data Objective Data Vital Signs: Vital Signs Temp Pulse Resp BP Pulse Ox 96.2 F L 71 22 H 112/69 96 03/28/21 04:31 03/28/21 05:59 03/28/21 04:31 03/28/21 04:31 03/28/21 04:47 Oxygen Flow Rate (L/min) 2 Oxygen Delivery Method Room Air Weight: 84 kg Body Mass Index (BMI) 34.9 Intake & Output: Intake and Output for Last 24 Hours 03/26/21 03/27/21 03/28/21 23:59 23:59 23:59 Intake Total 711.67 / 711.67 993.33 / 993.33 Output Total 600 / 600 Balance 111.67 / 111.67 993.33 / 993.33 Lab / Micro Data Result Diagrams: 03/28/21 06:32 03/28/21 06:32 Labs: Laboratory Results - last 24 hr 03/27/21 12:55: WBC 5.3, RBC 4.57, Hgb 13.6, Hct 39.7, MCV 86.9, MCH 29.8, MCHC 34.3, RDW Std Deviation 42.9, RDW Coeff of Palomo 13.6, Plt Count 317, MPV 8.8, Immature Gran % (Auto) 0.900, Neut % (Auto) 82.0 H, Lymph % (Auto) 12.6 L, [place] % (Auto) 4.3, Eos % (Auto) 0.0, Baso % (Auto) 0.2, Absolute Neuts (auto) 4.3, Absolute Lymphs (auto) 0.67 L, Nucleated RBC % 0 03/27/21 12:55: Sodium 127 L, Potassium 3.4 L, Chloride 96 L, Carbon Dioxide 22.0, Anion Gap 9, BUN 9, Creatinine 0.69, Estim Creat Clear Calc 67.06, Est GFR (MDRD) Af Amer 113, Est GFR (MDRD) Non-Af 93, BUN/Creatinine Ratio 13.1, Glucose 108 H, Calcium 8.5, Total Bilirubin 0.70, AST 124 H, ALT 65 H, Alkaline Phosphatase 57, Total Protein 7.1, Albumin 2.8 L, Globulin 4.3 H, Albumin/Globulin Ratio 0.7 L 03/27/21 12:55: Lactic Acid 1.0 03/27/21 12:55: D-Dimer Quant (PE/DVT) 3.27 H* 03/27/21 12:55: Magnesium 1.9, Ferritin 1590 H, Lactate Dehydrogenase 928 H, C- React Prot Ext Range 65.70 H 03/27/21 12:55: B-Natriuretic Peptide 10.5 03/27/21 12:55: Procalcitonin 0.14 H 03/27/21 17:01: POC Glucose 117 H 03/27/21 21:37: POC Glucose 149 H 03/28/21 06:32: WBC 5.8, RBC 4.33, Hgb 13.1, Hct 39.0, MCV 90.1, MCH 30.3, MCHC 33.6, RDW Std Deviation 46.2 H, RDW Coeff of Palomo 13.8, Plt Count 352, MPV 8.9, Immature Gran % (Auto) 2.300 H, Neut % (Auto) 78.4 H, Lymph % (Auto) 15.5 L, [place] % (Auto) 3.5, Eos % (Auto) 0.0, Baso % (Auto) 0.3, Absolute Neuts (auto) 4.5, Absolute Lymphs (auto) 0.89, Nucleated RBC % 0 Micro: Microbiology 03/27/21 Unknown Urine, Clean Catch Legionella Antigen - Final 03/27/21 Unknown Urine, Clean Catch Streptococcus pneumoniae Antigen (M - Final 03/27/21 17:40 Mucosa - Nasopharyngeal Respiratory Panel (PCR) - Final Radiography Diagnostic Testing: Radiology Impression Chest CTA 03/27/21 12:35 IMPRESSION: No evidence of pulmonary embolism. Bilateral pulmonary infiltrates worse in the right upper and right lower lobes. Electronically Signed: Rios Marmolejo MD at 14:31 EDT , Service support , Chest X-Ray 03/27/21 13:26 IMPRESSION: Right upper lobe and right perihilar infiltrates. Radiographic follow-up is recommended. Questionable 7.1 mm nodule in the left midlung. Electronically Signed: Rios Marmolejo MD at 14:01 EDT , Service support , Physical Exam Narrative GENERAL: cooperative HEENT: Atraumatic; EYES; Anicteric, Normal Conjunctiva NECK; supple, normal thyroid, RESPIRATORY: Diminished to auscultation CARDIOVASCULAR: Regular S1 S2, GI: soft, normoactive bowel sounds, : No Renal angle tenderness; EXTREMITIES: No edema, no clubbing, MUSCULOSKELETAL: no muscle waisting NEURO: Awake; no lateralizing signs. SKIN: No Rash PSYCH; Flat affect Assessment & Plan Assessment/Plan (1) Pneumonia due to COVID-19 virus: (2) Hypoxia: PLAN: Patient is a 56-year-old lady unvaccinated against COVID-19 presented with progressive generalized weakness malaise cough and sputum product ion. CTA obtained on admission demonstrated bilateral pulmonary infiltrate worse in the right upper and right lower lobes. An assessment of acute hypoxic respiratory failure secondary to COVID-19 pneumonia admitted to regular nursing floor for further management 1. Acute hypoxic respiratory failure secondary to SARS-CoV-2 pneumonia plan?patient admitted to regular nursing floor for management started on Decadron as well as supplemental oxygen. Patient not a candidate for remdesivir given the duration of her symptoms. Was empirically started on antibiotics from the ED 2. Acute gastroenteritis ?Suspected to be secondary to viral gastroenteritis from SARS-CoV-2 infection being managed symptomatically 3. Hyponatremia ?Do suspect a combination of hypovolemic hyponatremia as well as SIADH from patient pulmonary condition. Daily BMPs ordered for monitoring 4. Hypokalemia -corrected per protocol 5. Diabetes mellitus type 2 ?Managed with diet placed on Accu-Cheks before meals and at bedtime with sliding scale coverage 6. Depression with anxiety ?Patient is on Lexapro and lorazepam as needed 8. Morbid obesity - With a BMI of 35 patient was counseled on weight reduction 9. Chronic hep C ?Per history 10. DVT prophylaxis ?Enoxaparin 30 mg SC twice daily Charges/Coding Visit Charges Inpatient E&M: 62822 Subs Hosp L3
[2021-03-28 07:38] LABS: ALB/GLOB Ratio 0.6 RATIO (0.9-2.4); AST(SGOT) 84 U/L (15-37); Alanine Aminotransfer ALT/SGPT 59 U/L (13-56); Albumin, Serum 2.4 g/dL (3.2-5.0); Alkaline Phosphatase 50 U/L (45-117); Anion Gap 2 (5-15); BUN 9 mg/dL (7-18); Calcium,Total 8.4 mg/dL (8.5-10.1); Chloride 105 mmol/L (98-107); Creatinine, Serum 0.64 mg/dL (0.55-1.02); EST Glomerular Filtration Rate 100 mL/min (>60); Est Glom Filt Rate - Afr Amer 121 mL/min (>60); Glucose 141 mg/dL (74-106); Potassium 4.2 mmol/L (3.5-5.1); Protein, Total 6.4 g/dL (6.4-8.2); Sodium Level 134 mmol/L (136-145)
[2021-03-28 07:55] LABS: Platelet Estimate ADEQUATE (ADEQ); Red Cell Morphology NORM C+C NORMAL (NORM C&C)
[2021-03-28] MEDS: LORazepam 0.5 MG Tablet PO ×2 (10:09→22:05)
[2021-03-28] MEDS: Famotidine 20 MG Tablet PO ×2 (10:09→21:55)
[2021-03-28] MEDS: Enoxaparin 30 MG/0.3 ML Syringe SC ×2 (10:09→21:55)
[2021-03-28] MEDS: dexAMETHasone 4 MG Tablet 6 MG PO (10:09)
[2021-03-28 11:35] LABS: Bedside Glucose 141 mg/dL (70-110)
[2021-03-28 12:26] LABS: Bedside Glucose 140 mg/dL (70-110)
--- NOTE | 2021-03-28 13:05 | CASEMGMT ---
DOUGLAS HOPKINS ASSESSMENT TC to room for initial transition planning/care coordination assessment. DOUGLAS HOPKINS introduced self and role at [facility]. Pt voices understanding and consents to assessment at this time. Pt is A/O at this time and answers all questions appropriately. Care providers, pharmacy, and demographics verified/updated at this time. PCP: Dr Adler Specialists: none Preferred Pharmacy: [facility] Insurance: [facility] Community Plan BLACK Prescription Benefit: Yes LNOK: Daughter: Yanira Fortune. Dtr, Maryellen Fortune, is a pt in ICU @ [facility] and is on a ventilator. Living Arrangements: Lives w/dtrMaryellen, in 2-story home. Bedroom and bathroom on 2nd floor. Also has bathroom on main floor and can do FFSU if needed. Independent w/ADL's and IADL's. States works from home. Transportation: Pt states drives self and states no transportation concerns at this time. DME: Has a pulse ox. No home O2. Does not have a CPAP or BIPAP. Discussed possible need for Home O2. Pt made aware the only DME co in network w/her insurance is [employer] Instructed on process for home O2 set-up and questions answered. Pt states would also like to get a shower chair, as she has been weak. She was made aware DOUGLAS HOPKINS is unsure if her insurance will cover for shower chair, but script can be sent to [facility] @ discharge if she would like and she can discuss any payment and shipping options w/them. She states she would like DOUGLAS HOPKINS to do that and voices appreciation. HHC/SNF: No hx of either. Denies need for HHC. Pt wishes to return home and states has no concerns with going home at time of discharge. CM or nursing to follow for home oxygen needs and any further discharge planning/needs. Pt voices no further concerns/needs at this time. Advised pt to ask for CM if any further questions/concerns/needs arise. Voices understanding. PLAN: Home w/discharge plans in place. Pt may need O2 @ discharge. Green sheet placed on chart w/Home O2 set up instructions if pt does qualify for home O2. Tere SHARP RN, CM
--- NOTE | 2021-03-28 14:14 | DS.PCM_ITS ---
Providers Date of Admission: 03/27/21 Primary Care Physician: Dr. Rhina Adler MD Reason For Visit: COVID PNA, HYPOXIA, INTRACTABLE DIARRHEA Diagnosis Discharge Diagnosis (1) Pneumonia due to COVID-19 virus: Status: Acute Code(s): U07.1 - COVID-19; J12.82 - Pneumonia due to coronavirus disease 2019 (2) Hypoxia: Status: Acute Code(s): R09.02 - Hypoxemia Medications at Discharge Home Medications escitalopram oxalate 20 mg PO DAILY 09/22/14 lorazepam 0.5 mg tablet 0.5 mg PO BID tab 10/22/19 albuterol sulfate 2 puff INHALATION Q6H #8.5 g 03/28/21 dexamethasone 6 mg PO DAILY #9 tab 03/28/21 doxycycline hyclate 100 mg PO BID #14 cap 03/28/21 guaifenesin [Mucinex] 1,200 mg PO BID #14 tab 03/28/21 potassium chloride [Klor-Con M20] 20 meq PO BIDCM #10 tab 03/28/21 Hospital Course Summary of Care Provided Minutes Spent on Discharge: 50 Hospital Course: Patient is a 56-year-old lady unvaccinated against COVID-19 presented with progressive generalized weakness malaise cough and sputum production. CTA obtained on admission demonstrated bilateral pulmonary infiltrate worse in the right upper and right lower lobes. An assessment of acute hypoxic respiratory failure secondary to COVID-19 pneumonia admitted to regular nursing floor for further management 1. Acute hypoxic respiratory failure secondary to SARS-CoV-2 pneumonia plan?patient admitted to regular nursing floor for management started on Decadron as well as supplemental oxygen. Patient not a candidate for remdesivir given the duration of her symptoms. Was empirically started on antibiotics from the ED -Patient condition did stabilize and she requested to be discharged home just the day after her admission. She was assessed for home oxygen which she did qualify she would need portability since she is active both at home as well as in the community. Prescription was written for doxycycline as well as Decadron 2. Acute gastroenteritis ?Suspected to be secondary to viral gastroenteritis from SARS-CoV-2 infection being managed symptomatically 3. Hyponatremia ?Do suspect a combination of hypovolemic hyponatremia as well as SIADH from patient pulmonary condition. Daily BMPs ordered for monitoring 4. Hypokalemia -corrected per protocol 5. Diabetes mellitus type 2 ?Managed with diet placed on Accu-Cheks before meals and at bedtime with sliding scale coverage 6. Depression with anxiety ?Patient is on Lexapro and lorazepam as needed 8. Morbid obesity - With a BMI of 35 patient was counseled on weight reduction 9. Chronic hep C ?Per history 10. DVT prophylaxis ?Enoxaparin 30 mg SC twice daily Physical Exam Narrative GENERAL: cooperative HEENT: Atraumatic; EYES; Anicteric, Normal Conjunctiva NECK; supple, normal thyroid, RESPIRATORY: Diminished to auscultation CARDIOVASCULAR: Regular S1 S2, GI: soft, normoactive bowel sounds, : No Renal angle tenderness; EXTREMITIES: No edema, no clubbing, MUSCULOSKELETAL: no muscle waisting NEURO: Awake; no lateralizing signs. SKIN: No Rash PSYCH; Flat affect Weight / BMI Weight Weight: 84 kg Body Mass Index (BMI) 34.9 ABG / Lab / Microbiology Data Result Diagrams: 03/28/21 06:32 03/28/21 06:32 Laboratory: Laboratory Results - last 24 hr 03/27/21 12:55: D-Dimer Quant (PE/DVT) 3.27 H* 03/27/21 12:55: Magnesium 1.9, Ferritin 1590 H, Lactate Dehydrogenase 928 H, C- React Prot Ext Range 65.70 H 03/27/21 12:55: B-Natriuretic Peptide 10.5 03/27/21 12:55: Procalcitonin 0.14 H 03/27/21 17:01: POC Glucose 117 H 03/27/21 21:37: POC Glucose 149 H 03/28/21 06:32: WBC 5.8, RBC 4.33, Hgb 13.1, Hct 39.0, MCV 90.1, MCH 30.3, MCHC 33.6, RDW Std Deviation 46.2 H, RDW Coeff of Palomo 13.8, Plt Count 352, MPV 8.9, Immature Gran % (Auto) 2.300 H, Neut % (Auto) 78.4 H, Lymph % (Auto) 15.5 L, [place] % (Auto) 3.5, Eos % (Auto) 0.0, Baso % (Auto) 0.3, Absolute Neuts (auto) 4.5, Absolute Lymphs (auto) 0.89, Nucleated RBC % 0, Platelet Estimate ADEQUATE, RBC Morphology NORM C+C 03/28/21 06:32: Sodium 134 L, Potassium 4.2, Chloride 105, Carbon Dioxide 27.0, Anion Gap 2 L, BUN 9, Creatinine 0.64, Estim Creat Clear Calc 72.30, Est GFR (MDRD) Af Amer 121, Est GFR (MDRD) Non-Af 100, BUN/Creatinine Ratio 14.0, Glu cose 141 H, Calcium 8.4 L, Total Bilirubin 0.40, AST 84 H, ALT 59 H, Alkaline Phosphatase 50, Total Protein 6.4, Albumin 2.4 L, Globulin 4.0, Albumin/Globulin Ratio 0.6 L 03/28/21 07:03: POC Glucose 141 H 03/28/21 11:20: COVID-19 (ROSELINE) Not Detected 03/28/21 12:08: POC Glucose 140 H Microbiology: Microbiology 03/27/21 Unknown Urine, Clean Catch Legionella Antigen - Final 03/27/21 Unknown Urine, Clean Catch Streptococcus pneumoniae Antigen (M - Final 03/27/21 17:40 Mucosa - Nasopharyngeal Respiratory Panel (PCR) - Final Radiography Diagnostic Testing: Radiology Impression Chest CTA 03/27/21 12:35 IMPRESSION: No evidence of pulmonary embolism. Bilateral pulmonary infiltrates worse in the right upper and right lower lobes. Electronically Signed: Rios Marmolejo MD at 14:31 EDT , Service support , D/C Instructions Discharge Diet: No restrictions Discharge Activity: Return to Normal Activity Call your doctor if you observe: Fever of 101 or Higher, Shortness of breath, Fainting spells and Chest pain Meaningful Use Info Meaningful Use Diagnoses (Choose all that apply): None applicable Discharge Plan Admission Admit Date/Time: 03/27/21 14:40 Attending Provider: Pepe Grace Primary Care Provider: Rhina Adler Discharge Orders/Prescriptions Prescriptions: New potassium chloride [Klor-Con M20] 20 mEq Tablet,Er Particles/Crystals 20 meq PO BIDCM Qty: 10 RF: 0 dexamethasone 4 mg Tablet 6 mg PO DAILY Qty: 9 RF: 0 albuterol sulfate 90 mcg/actuation HFA aerosol inhaler 2 puff inhalation Q6H Qty: 8.5 RF: 0 Mucinex 1,200 mg tablet extended release 12hr 1,200 mg PO BID Qty: 14 RF: 0 doxycycline hyclate 100 mg capsule 100 mg PO BID Qty: 14 RF: 0 Continued escitalopram oxalate 10 MG tablet 20 mg PO DAILY RF: 0 lorazepam 0.5 mg tablet 0.5 mg PO BID RF: 0 Referrals / Follow Up: Rhina Adler MD [Primary Care Provider] - In 1 Week Disposition Disposition (needs filled in before D/C Order can be placed): Home, Self Care Charges/Coding Visit Charges Inpatient E&M: 70110 Disch Hosp
[2021-03-28] MEDS: Insulin Lispro 100 UNIT/ML INSULN.PEN SC ×2 (16:26→21:57)
[2021-03-28 17:05] LABS: Bedside Glucose 215 mg/dL (70-110)
[2021-03-28] MEDS: Doxycycline 100 MG CAPSULE PO (21:54)
[2021-03-28] MEDS: guaiFENesin 1,200 MG Tablet 1200 MG PO (21:54)
[2021-03-28] MEDS: Escitalopram Oxalate 20 MG Tablet PO (21:55)
[2021-03-28 23:30] LABS: Bedside Glucose 166 mg/dL (70-110)
--- NOTE | 2021-03-30 15:03 | CASEMGMT ---
DOUGLAS HOPKINS Discharge Follow Up Phone Call: NORMAElisabeth: Nita Strata:2 Call Date: 03/30/21 Discharge Date: 03/28/21 Time of Call:1455 Duration:7 min Admitting Dx: COVID PNA, hypoxia, intractable diarrhea DOUGLAS HOPKINS completed follow up phone call after recent hospitalization. Pt states she is doing ok. She states that she is not sure how to fill the O2 with water for humidity. Encouraged her to call [facility] [employer] [facility] to be instructed how to do this. She has their phone number. She states that she cannot pick up attendant her portable tank to put in the car. She said that she does have someone who can lift this for her for her appt with on Tuesday. Pt reports her pulse ox is running 97%. She has been able to pick up attendant her rx without difficulties. Pt denies further questions at this time.
== END 2021-03-28 23:43 | disposition home or self-care (01) | DRG 137 ==
LOC: ED 14:40 → MS3 14:59
PROVIDERS: Admitting Provider Family Medicine; Emergency Provider Emergency Medicine; PCP Internal Medicine; Visit Provider Internal Medicine
DX: U07.1 COVID-19 (principal); J12.82 Pneumonia due to coronavirus disease 2019; J96.01 Acute respiratory failure with hypoxia; E87.1 Hypo-osmolality and hyponatremia; F41.0 Panic disorder [episodic paroxysmal anxiety]; K52.9 Noninfective gastroenteritis and colitis, unspecified; E87.6 Hypokalemia; F17.210 Nicotine dependence, cigarettes, uncomplicated; E03.9 Hypothyroidism, unspecified; E11.9 Type 2 diabetes mellitus without complications; F41.8 Other specified anxiety disorders; B18.2 Chronic viral hepatitis C; E66.01 Morbid (severe) obesity due to excess calories; E78.5 Hyperlipidemia, unspecified; Z79.899 Other long term (current) drug therapy; Z79.890 Hormone replacement therapy; Z68.35 Body mass index [BMI] 35.0-35.9, adult; Z28.3 Underimmunization status
CPT/HCPCS: 36415; 71045; 71275; 80053; 82728; 82962; 83605; 83615; 83735; 83880; 84145; 85025; 85379; 86140; 87040; 87449; 87633; 87635; 93005; 94640; 97802; 99251; 99285; 99406; J7030; Q9967; U0005; A4216; G0463; J2405; U0003

== ENCOUNTER → 2021-12-02 | Outpatient (CLI) | payer MEDICAID, SELFPAY ==
[2021-12-02 17:59] LABS: Absolute Lymphocyte Count 3.12 X10^3/uL (0.83-4.51); Absolute Neutrophil Count 4.5 X10^3/uL (2.0-7.7); Basophil# 0.05 X10^3/uL; Basophil% 0.6 % (0-1); Eosinophil# 0.25 X10^3/uL; Hemoglobin 14.6 g/dL (12.0-15.0); Lymphocyte # 3.12 X10^3/ul (0.83-4.51); Lymphocyte % 36.9 % (19-41); Mean Corp Hgb Conc 33.2 g/dL (32-36); Mean Corpuscular Hgb 30.7 pg (27.0-32.0); Mean Corpuscular Volume 92.6 fL (81-99); Mean Platelet Vol. 9.2 fl (6.2-12.0); Monocyte# 0.47 X10^3/uL; Monocyte% 5.6 % (0-10); NRBC Flagged by Analyzer 0 % (0-5); Neutrophil # 4.52 X10^3/uL (2.7-7.7); Neutrophil % 53.3 % (47-70); Platelet Count 374 K/mm3 (150-450); RBC Distribution Width CV 13.7 % (11.6-14.6); Red Blood Count 4.75 M/mm3 (4.2-5.4); White Blood Count 8.5 K/mm3 (4.4-11.0)
[2021-12-02 18:38] LABS: AST(SGOT) 17 U/L (15-37); Alanine Aminotransfer ALT/SGPT 24 U/L (13-56); Albumin, Serum 3.8 g/dL (3.2-5.0); Alkaline Phosphatase 95 U/L (45-117); Anion Gap 5 (5-15); BUN 12 mg/dL (7-18); BUN/Creat Ratio 12.3 RATIO (10-20); Calcium,Total 9.4 mg/dL (8.5-10.1); Chloride 109 mmol/L (98-107); Cholesterol 262 mg/dL (200); Creatinine, Serum 0.97 mg/dL (0.55-1.02); EST Glomerular Filtration Rate 62 mL/min (>60); Est Glom Filt Rate - Afr Amer 75 mL/min (>60); Free T3 2.3 pg/mL (2.18-3.98); Globulin 3.7 g/dL (2.2-4.2); Glucose 90 mg/dL (74-106); High Density Lipoprotein 43 mg/dL; Potassium 4.4 mmol/L (3.5-5.1); Protein, Total 7.5 g/dL (6.4-8.2); Sodium Level 137 mmol/L (136-145); T4 Free Direct 0.72 ng/dL (0.76-1.46); Thyroid Stim Hormone (TSH) 3.91 uIU/mL (0.358-3.74); Triglycerides 185 mg/dL; Very Low Density Lipoprotein 37 mg/dL (5-40)
== END | disposition home or self-care (01) ==
LOC: BIMLAB 16:11
PROVIDERS: PCP Internal Medicine; Referring Provider Physician Assistant; Visit Provider Physician Assistant
DX: R79.89 Other specified abnormal findings of blood chemistry (principal); E03.9 Hypothyroidism, unspecified; E78.5 Hyperlipidemia, unspecified
CPT/HCPCS: 36415; 80053; 80061; 84439; 84443; 84481; 85025

== ENCOUNTER → 2022-03-05 | Outpatient (CLI) | payer MEDICAID, SELFPAY ==
[2022-03-05 16:50] LABS: Thyroid Stim Hormone (TSH) 4.74 uIU/mL (0.358-3.74)
== END | disposition home or self-care (01) ==
LOC: BIMLAB 15:25
PROVIDERS: PCP Internal Medicine; Referring Provider Nurse Practitioner Family; Visit Provider Nurse Practitioner Family
DX: E03.9 Hypothyroidism, unspecified (principal); R73.03 Prediabetes
CPT/HCPCS: 36415; 84443

== ENCOUNTER → 2022-05-05 | Outpatient (CLI) | payer MEDICAID, SELFPAY | END | disposition home or self-care (01) | LOC: MTLAB 15:24 | PROVIDERS: Physician Assistant; PCP Internal Medicine; Referring Provider Nurse Practitioner Family; Visit Provider Nurse Practitioner Family | DX: E03.9 Hypothyroidism, unspecified (principal) | CPT/HCPCS: 36415; 84443 ==

== ENCOUNTER → 2022-07-09 | Outpatient (CLI) | payer MEDICAID, SELFPAY ==
[2022-07-09 08:35] LABS: Bacteria 0 SEEN /hpf (None Seen); Mucous, Urine 0 SEEN /hpf (<or=2+); Red Blood Cells-Urine 0 SEEN /hpf (0-5)
[2022-07-09 12:28] LABS: Color, Urine Yellow (Yellow); Glucose, Dipstick Normal (Normal); Ketone-Dipstick Negative (Negative); Leukocyte Esterase-Dipstick 500 /ul (Negative); Nitrite-Dipstick Negative (Negative); Occult Blood-Urine 150 /ul (Negative); Protein-Dipstick 30 mg/dl (Negative); Urine Bilirubin Dipstick Negative (Negative); Urine Clarity Clear (Clear); Urine Urobilinogen Normal (Normal)
[2022-07-09 12:41] LABS: Squamous Epithelial Cells - UA 0-5 SEEN /hpf (5-10); White Blood Cells 0-5 SEEN /hpf (0-5)
== END | disposition home or self-care (01) ==
PROVIDERS: PCP Internal Medicine; Visit Provider Nurse Practitioner Family
DX: R30.0 Dysuria (principal); E03.9 Hypothyroidism, unspecified; E56.9 Vitamin deficiency, unspecified; R53.83 Other fatigue
CPT/HCPCS: 81001; 87086; 87088

== ENCOUNTER → 2022-07-28 | Outpatient (CLI) | payer MEDICAID, SELFPAY ==
[2022-07-28 17:38] LABS: Absolute Lymphocyte Count 3.34 X10^3/uL (0.83-4.51); Absolute Neutrophil Count 3.6 X10^3/uL (2.0-7.7); Basophil# 0.07 X10^3/uL; Basophil% 0.9 % (0-1); Eosinophil# 0.32 X10^3/uL; Eosinophils% 4.2 % (0-5); Hematocrit 43.2 % (37-47); Hemoglobin 14.2 g/dL (12.0-15.0); Lymphocyte # 3.34 X10^3/ul (0.83-4.51); Lymphocyte % 43.5 % (19-41); Mean Corp Hgb Conc 32.9 g/dL (32-36); Mean Corpuscular Hgb 30.5 pg (27.0-32.0); Mean Corpuscular Volume 92.9 fL (81-99); Mean Platelet Vol. 9.1 fl (6.2-12.0); Monocyte# 0.37 X10^3/uL; Monocyte% 4.8 % (0-10); NRBC Flagged by Analyzer 0 % (0-5); Neutrophil # 3.55 X10^3/uL (2.7-7.7); Neutrophil % 46.2 % (47-70); Platelet Count 381 K/mm3 (150-450); RBC Distribution Width CV 13.3 % (11.6-14.6); RBC Distribution Width SD 45.1 fl (35.1-43.9); Red Blood Count 4.65 M/mm3 (4.2-5.4); White Blood Count 7.7 K/mm3 (4.4-11.0)
[2022-07-28 17:54] LABS: Vitamin B12 433 pg/mL (211-911); Vitamin D,25 Hydroxy 11.6 ng/mL
[2022-07-28 18:07] LABS: AST(SGOT) 16 U/L (15-37); Alanine Aminotransfer ALT/SGPT 24 U/L (13-56); Albumin, Serum 3.6 g/dL (3.2-5.0); Alkaline Phosphatase 84 U/L (45-117); Anion Gap 9 (5-15); BUN 9 mg/dL (7-18); BUN/Creat Ratio 9.9 RATIO (10-20); Chloride 108 mmol/L (98-107); Creatinine, Serum 0.91 mg/dL (0.55-1.02); EST Glomerular Filtration Rate 67 mL/min (>60); Est Glom Filt Rate - Afr Amer 81 mL/min (>60); Globulin 3.6 g/dL (2.2-4.2); Glucose 115 mg/dL (74-106); Potassium 4.2 mmol/L (3.5-5.1); Protein, Total 7.2 g/dL (6.4-8.2); Sodium Level 139 mmol/L (136-145); Thyroid Stim Hormone (TSH) 4.75 uIU/mL (0.358-3.74)
== END | disposition home or self-care (01) ==
PROVIDERS: PCP Internal Medicine; Referring Provider Nurse Practitioner Family; Visit Provider Nurse Practitioner Family
DX: E03.9 Hypothyroidism, unspecified (principal); E56.9 Vitamin deficiency, unspecified; R53.83 Other fatigue
CPT/HCPCS: 36415; 80053; 82306; 82607; 84443; 85025

== ENCOUNTER → 2022-08-06 | Outpatient (CLI) | payer MEDICAID, SELFPAY ==
[2022-08-06 08:55] LABS: Mucous, Urine 0 SEEN /hpf (<or=2+)
[2022-08-06 09:13] LABS: Color, Urine Yellow (Yellow); Glucose, Dipstick Normal (Normal); Ketone-Dipstick Negative (Negative); Leukocyte Esterase-Dipstick 500 /ul (Negative); Nitrite-Dipstick Negative (Negative); Occult Blood-Urine 25 /ul (Negative); Protein-Dipstick Negative (Negative); Specific Gravity, Urine 1.015 (1.002-1.030); Urine Bilirubin Dipstick Negative (Negative); Urine Clarity Sl. Cloudy (Clear); Urine Urobilinogen Normal (Normal)
[2022-08-06 09:27] LABS: Bacteria 1+ /hpf (None Seen); Red Blood Cells-Urine 0-5 SEEN /hpf (0-5); Squamous Epithelial Cells - UA 0-5 SEEN /hpf (5-10); White Blood Cells 25-50 SEEN /hpf (0-5)
== END | disposition home or self-care (01) ==
LOC: BIMLAB 08:53 → LABSPEC 08:54
PROVIDERS: PCP Internal Medicine; Visit Provider Nurse Practitioner Family
DX: R31.29 Other microscopic hematuria (principal)
CPT/HCPCS: 81001

== ENCOUNTER → 2022-10-14 | Outpatient (CLI) | payer MEDICAID, SELFPAY ==
[2022-10-14 17:18] LABS: Thyroid Stim Hormone (TSH) 2.24 uIU/mL (0.358-3.74)
== END | disposition home or self-care (01) ==
LOC: BIMLAB 14:38
PROVIDERS: PCP Internal Medicine; Referring Provider Nurse Practitioner Family; Visit Provider Nurse Practitioner Family
DX: E03.9 Hypothyroidism, unspecified (principal)
CPT/HCPCS: 36415; 84443

== ENCOUNTER → 2024-02-24 | Outpatient (CLI) | payer SELFPAY ==
--- NOTE | 2024-02-24 14:38 | RAD_ITS ---
INDICATION: UPPER RESP. INFECTION cough for 3 weeks EXAMINATION/TECHNIQUE: X-RAY - XR Chest 2 Views COMPARISON: Prior study dated: 03/27/2021 FINDINGS: LINES/DEVICES: None. LUNGS: No consolidation. No pneumothorax. MEDIASTINUM: Unremarkable. CARDIAC SILHOUETTE: Not enlarged. BONES AND SOFT TISSUES: No acute abnormalities. RAD/Chest PA and Lateral IMPRESSION: No evidence of active intrathoracic disease. If symptoms persist, consider CT chest for further evaluation. Electronically Signed: Jewell Fuentes MD at 8:16 EDT ,
[2024-02-24 17:51] LABS: Absolute Neutrophil Count 4.7 X10^3/uL (2.0-7.7); Basophil# 0.05 X10^3/uL; Basophil% 0.6 % (0-1); Eosinophil# 0.28 X10^3/uL; Eosinophils% 3.1 % (0-5); Hemoglobin 13.9 g/dL (12.0-15.0); Lymphocyte % 40.8 % (19-41); Mean Corp Hgb Conc 32.3 g/dL (32-36); Mean Corpuscular Hgb 30.4 pg (27.0-32.0); Mean Corpuscular Volume 94.1 fL (81-99); Mean Platelet Vol. 8.9 fl (6.2-12.0); Monocyte# 0.34 X10^3/uL; Monocyte% 3.8 % (0-10); NRBC Flagged by Analyzer 0 % (0-5); Neutrophil # 4.65 X10^3/uL (2.7-7.7); Neutrophil % 51.3 % (47-70); Platelet Count 438 K/mm3 (150-450); RBC Distribution Width CV 13.3 % (11.6-14.6); Red Blood Count 4.57 M/mm3 (4.2-5.4); White Blood Count 9.1 K/mm3 (4.4-11.0)
[2024-02-24 18:00] LABS: ALB/GLOB Ratio 1.1 RATIO (0.9-2.4); AST(SGOT) 16 U/L (15-37); Alanine Aminotransfer ALT/SGPT 20 U/L (13-56); Albumin, Serum 3.8 g/dL (3.2-5.0); Alkaline Phosphatase 80 U/L (45-117); Anion Gap 4 (5-15); BUN 9 mg/dL (7-18); Calcium,Total 9.2 mg/dL (8.5-10.1); Chloride 107 mmol/L (98-107); EST Glomerular Filtration Rate 68 mL/min (>60); Est Glom Filt Rate - Afr Amer 82 mL/min (>60); Globulin 3.6 g/dL (2.2-4.2); Glucose 88 mg/dL (74-106); Potassium 4.3 mmol/L (3.5-5.1); Protein, Total 7.4 g/dL (6.4-8.2); Sodium Level 138 mmol/L (136-145)
== END | disposition home or self-care (01) ==
PROVIDERS: PCP Nurse Practitioner Family
DX: J06.9 Acute upper respiratory infection, unspecified (principal); R53.83 Other fatigue
CPT/HCPCS: 36415; 71046; 80053; 84443; 85025